=== PATIENT | female | born 1975 | race Caucasian/White ===

== ENCOUNTER → 2021-03-21 | Outpatient (CLI) | payer BC, OTHER ==
[~2021-03-21] MED LIST: BUSPIRONE HCL10 MG PO; CLONIDINE0.1; CYCLOBENZAPRINE5 MG; POTASSIUM20 PO; TOPAMAX 25 MG T25 M1; WELLBUTRIN; XANAX1 MG PO
== END ==
LOC: M.RAD 09:23
PROVIDERS: ATTEND Registered Nurse Diabetes Educator
DX: M54.41 Lumbago with sciatica, right side (principal); G89.29 Other chronic pain

== ENCOUNTER → 2021-03-21 | Outpatient (CLI) | payer BC, OTHER | LOC: M.CT 12:33 | PROVIDERS: ATTEND Registered Nurse Diabetes Educator | DX: M54.5 Low back pain (principal); G89.29 Other chronic pain; N20.0 Calculus of kidney; K76.9 Liver disease, unspecified ==

== ENCOUNTER → 2021-03-30 | Outpatient (CLI) | payer BC | LOC: M.ULTRA 09:00 | PROVIDERS: ATTEND Registered Nurse Diabetes Educator | DX: K76.89 Other specified diseases of liver (principal) ==